=== PATIENT | female | born 1945 | race Caucasian/White ===

== ENCOUNTER 2023-12-23 12:40 | Outpatient (CLI) | payer BC ==
[2023-12-23 17:51] LABS: BASOPHILS % (AUTO) 0.4 %; EOSINOPHILS # (AUTO) 0.2 10^3/uL (0.0-0.7); HGB - HEMOGLOBIN 11.5 g/dL (12.0-16.0); LYMPHOCYTES # (AUTO) 2.2 10^3/uL (1.5-3.5); LYMPHOCYTES % (AUTO) 29.7 %; MEAN CORPUSCULAR HEMOGLOBIN 28.4 pg (27.0-31.0); MEAN CORPUSCULAR HGB CONC 31.1 g/dL (32.0-36.0); MEAN CORPUSCULAR VOLUME 91.4 fL (81.0-99.0); MEAN PLATELET VOLUME 12.3 fL (7.9-10.8); MONOCYTES # (AUTO) 0.6 10^3/uL (0.0-1.0); MONOCYTES % (AUTO) 7.7 %; NEUTROPHILS # (AUTO) 4.5 10^3/uL (1.5-6.6); NEUTROPHILS % (AUTO) 60.1 %; PLT - PLATELET COUNT 276 10^3/uL (130-450); RED BLOOD COUNT 4.05 10^6/uL (4.20-5.40); RED CELL DISTRIBUTION WIDTH 15.1 % (12.0-15.0); WHITE BLOOD COUNT 7.5 x10^3/uL (4.8-10.8)
[2023-12-23 18:11] LABS: ALBUMIN 3.9 g/dL (3.2-5.5); ALBUMIN/GLOBULIN RATIO 1.1 (1.0-2.2); ALKALINE PHOSPHATASE 80 IU/L (42-121); ALT ALANINE AMINOTRANSFERASE 11 IU/L (10-60); AST ASPARTATE AMINOTRANSFERASE 16 IU/L (10-42); BILIRUBIN,TOTAL 0.6 mg/dL (0.2-1.0); BUN - BLOOD UREA NITROGEN 22 mg/dL (6-20); CALCIUM 9.3 mg/dL (8.5-10.3); CARBON DIOXIDE - CO2 26 mmol/L (21-32); CHLORIDE 101 mmol/L (101-111); CHOL/HDL RATIO 3.2 (<4.4); CHOLESTEROL 127 mg/dL; CREATININE 1.2 mg/dL (0.6-1.3); GFR - MDRD 43 (>89); GLUCOSE 109 mg/dL (74-104); HDL CHOLESTEROL 40 mg/dL; LDL CHOLESTEROL,CALCULATED 55 mg/dL; LDL/HDL RATIO 1.4 (<4.4); POTASSIUM 3.7 mmol/L (3.5-4.5); SODIUM 135 mmol/L (135-145); TOTAL PROTEIN 7.3 g/dL (6.4-8.9); TRIGLYCERIDES 159 mg/dL (48-352); VLDL CHOLESTEROL 32 mg/dL
[2023-12-23 18:14] LABS: THYROID STIMULATING HORMONE 3.28 uIU/mL (0.34-5.60)
== END 2023-12-23 12:41 | disposition home or self-care (01) ==
LOC: LAB.N 12:40
PROVIDERS: ATTEND Physician Assistant
DX: I13.0 Hypertensive heart and chronic kidney disease with heart failure and stage 1 through stage 4 chronic kidney disease, or unspecified chronic kidney disease (principal); N18.31 Chronic kidney disease, stage 3a; E03.9 Hypothyroidism, unspecified
CPT/HCPCS: 36415; 80053; 80061; 83721; 84443; 85025

== ENCOUNTER 2024-03-13 14:09 | Outpatient (CLI) | payer BC ==
--- NOTE | 2024-03-13 19:33 | CT Report ---
PROCEDURE: Head WO INDICATIONS: MEMORY IMPAIRMENT TECHNIQUE: Noncontrast 4.5 mm thick angled axial sections acquired from the foramen magnum to the vertex. For r adiation dose reduction, the following was used: automated exposure control, adjustment of mA and/or kV according to patient size. COMPARISON: None. FINDINGS: Image quality: Excellent. CSF spaces: Basal cisterns are patent. No extra-axial fluid collections. Ventricles are normal in size and shape. Brain: No midline shift. No intracranial masses or hemorrhage. Michael-white matter interface is norm al. Symmetric calcification of the basal ganglia can be seen, which is considered to be within edenilson l limits for age. Age-appropriate brain parenchymal volume loss and chronic small vessel ischemic c hange can be seen. Skull and face: Calvarium and visualized facial bones are intact, without suspicious lesions. Sinuses: Visualized sinuses and mastoids are clear. IMPRESSION: Noncontrast head CT within normal limits for age, with generalized brain parenchymal volume loss and chronic small vessel ischemic change seen. To the limits of this noncontrast study, no findings of masses or mass effect can be seen. Reviewed by: Ryder Dutton MD on 03/13/2024 6:32 PM THOMAS Approved by: Ryder Dutton MD on 03/13/2024 6:32 PM [id number] Station ID: [id number]
== END 2024-03-13 14:10 | disposition home or self-care (01) ==
LOC: DI 14:09
PROVIDERS: ATTEND Physician Assistant
DX: R41.3 Other amnesia (principal); Z86.79 Personal history of other diseases of the circulatory system; G31.89 Other specified degenerative diseases of nervous system; I67.82 Cerebral ischemia

== ENCOUNTER 2024-04-03 10:16 | Outpatient (CLI) | payer BC ==
[2024-04-03 12:24] LABS: ESTIMATED AVERAGE GLUCOSE 126 mg/dL (70-100)
== END 2024-04-03 10:17 | disposition home or self-care (01) ==
LOC: LAB.N 10:16
PROVIDERS: ATTEND Physician Assistant
DX: R81 Glycosuria (principal)
CPT/HCPCS: 36415; 83036

== ENCOUNTER 2024-04-03 21:48 | Emergency (ER) | payer BC ==
--- NOTE | 2024-04-03 22:22 | ED Physician Documentation ---
PD HPI FOCAL NEURO - Stated complaint Stated Complaint: DIFFICULTY TALKING - Chief complaint Chief Complaint: Neuro - History obtained from History obtained from: Patient, Family - Additional information Additional information: 78-year-old woman who has A-fib and is on a DOAC. She has a history of TIA as well. There is been some word finding difficulty over the last few months and recent diagnosis of dementia and was put on donepezil. Suddenly tonight about an hour and a half ago she developed significantly more word finding difficulties and difficulties with speech. She denies any weakness, numbness, tingling anywhere. No headache. No vision deficit. No clumsiness. She is walking okay. She is here with her son. PD PAST MEDICAL HISTORY - Past Medical History Past Medical History: Yes Cardiovascular: Congestive heart failure Neuro: CVA, TIA - Past Surgical History Past Surgical History: No - Present Medications Home Medications: Ambulatory Orders Medication Instructions Recorded Confirmed Apixaban [Eliquis] 5 mg PO BID 04/03/24 04/03/24 Bumetanide [Bumex] 1 mg PO DAILY 04/03/24 04/03/24 Candesartan Cilexetil 2 mg PO DAILY 04/03/24 04/03/24 Dapagliflozin Propanediol [Farxiga] 5 mg PO DAILY 04/03/24 04/03/24 Donepezil [Aricept] 5 mg PO DAILY 04/03/24 04/03/24 Levothyroxine [Synthroid] 25 mcg PO QDAC 04/03/24 04/03/24 Metoprolol Succinate 150 mg PO DAILY 04/03/24 04/03/24 Multivit-Min/Iron/Folic/Lutein 1 each PO BID 04/03/24 04/03/24 [Multivitamin Women 50 Plus Tab] Rosuvastatin Calcium 10 mg PO DAILY 04/03/24 04/03/24 - Allergies Allergies/Adverse Reactions: Allergies Allergy/AdvReac Type Severity Reaction Status Date / Time No Known Drug Allergies Allergy Verified 04/03/24 22:02 - Social History Does the pt smoke?: No Smoking Status: Never smoker Does the pt drink ETOH?: No Does the pt have substance abuse?: No PD ED PE NORMAL - Vitals Vital signs reviewed: Yes - General General: Alert and oriented X 3, Other (Kind of stuttering speech and some difficulty understanding her but despite the dementia she is actually a fairly good historian. Remembers what she had for breakfast.) - HEENT HEENT: PERRL, EOMI - Neck Neck: Supple, no meningeal sign, No bony TTP - Cardiac Cardiac: No murmur, Other (Irregularly irregular with mild rapidity.) - Respiratory Respiratory: No respiratory distress, Clear bilaterally - Abdomen Abdomen: Non tender - Neuro Neuro: Alert and oriented X 3, No motor deficit, No sensory deficit Eye Opening: Spontaneous Motor: Obeys Commands Verbal: Oriented GCS Score: 15 - Psych Psych: Normal mood, Normal affect NIHSS - Time Time: 22:15 - Level of Consciousness Level of consciousness: (0) Alert, Keenly responsive LOC Questions: (0) Answers both Q's correct LOC Commands: (0) Performs both correctly - Gaze Best Gaze: (0) Normal - Visual Visual: (0) No loss - Facial Palsy Facial Palsy: (0) Normal, symmetrical movement - Motor Arms (both separate) Motor Arm (right): (0) No drift Motor Arm (left): (0) No drift - Motor Legs (both separate) Motor Leg (right): (0) No drift Motor Leg (left): (0) No drift - Limb Ataxia Limb Ataxia: (0) Absent - Sensory Sensory: (0) Normal - Best Language Best Language: (1) [id number] - Dysarthria Dysarthria: (0) Normal - Extinction and Inattention (formally neg Extinction and inattention: (0) No abnormality - Total Score/Results Total Score/Result: 1 Results - Vitals Vitals: Vital Signs - 24 hr 04/03/24 04/03/24 04/03/24 21:51 22:32 23:02 Temperature 36.6 C Heart Rate 124 H 110 H 113 H Respiratory 20 22 30 H Rate Blood Pressure 140/96 H 140/111 H 134/97 H O2 Saturation 99 97 96 04/03/24 04/04/24 04/04/24 23:30 00:30 01:15 Temperature Heart Rate 106 H 111 H 90 Respiratory 21 22 20 Rate Blood Pressure 155/108 H 131/96 H O2 Saturation 97 96 99 Oxygen O2 Source Room air - EKG (time done) 2211 EKG releavant findings:: EKG personally interpreted by author of this note. Relevant findings are: Rate: Rate (enter#) (121) Rhythm: Atrial fibrillation [place]: Normal QRS: Normal Ischemia: Normal ST segments - Labs Labs: Laboratory Tests 04/03/24 04/03/24 04/03/24 22:40 22:40 22:40 WBC 8.4 RBC 4.03 L Hgb 11.5 L Hct 36.2 L MCV 89.8 MCH 28.5 MCHC 31.8 L RDW 15.1 H Plt Count 231 MPV 10.5 Neut # (Auto) 5.7 Lymph # (Auto) 2.0 Alfalfa # (Auto) 0.6 Eos # (Auto) 0.1 Baso # (Auto) 0.0 Absolute Nucleated RBC 0.00 Nucleated RBC % 0.0 PT 21.3 H INR 2.0 H Sodium 138 Potassium 3.4 L Chloride 103 Carbon Dioxide 25 Anion Gap 10.0 BUN 15 Creatinine 1.0 Estimated GFR (MDRD) 53 L Glucose 144 H Calcium 9.3 Total Bilirubin 0.7 AST 18 ALT 10 Alkaline Phosphatase 94 Total Protein 7.0 Albumin 3.8 Globulin 3.2 Albumin/Globulin Ratio 1.2 PD Medical Decision Making - ED course ED course: She has A-fib so of course is at increased risk for stroke. She has some new mild aphasia in the setting of some more chronic aphasia. It does sound like something acute happens tonight, that said she is not a candidate for thrombolytics given the anticoagulation and she has been compliant with that. Care to Dr Jordan pending CT/CTA. Departure - Departure Disposition: 01 Home, Self Care Clinical Impression: TIA (transient ischemic attack) Condition: Good Instructions: ED Transient Ischemic Attack Comments: While there was no evidence of stroke on the CT scans, and your neck CT scan did not show any narrowing nor blockage of either of your carotid arteries in your neck, your symptoms are still strongly suggestive of a stroke. Realize that most strokes are not seen on these studies; MRI is the most accurate test for diagnosing stroke. Fortunately, on reevaluation, your difficulty with speech has nearly resolved. 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 Contact your PCP when the office is next open to arrange for next available appointment for reevaluation. Discharge Date/Time: 04/04/24 01:31
[2024-04-03 22:57] LABS: BASOPHILS % (AUTO) 0.4 %; EOSINOPHILS # (AUTO) 0.1 10^3/uL (0.0-0.7); EOSINOPHILS % (AUTO) 1.5 %; HCT - HEMATOCRIT 36.2 % (37.0-47.0); HGB - HEMOGLOBIN 11.5 g/dL (12.0-16.0); LYMPHOCYTES % (AUTO) 23.3 %; MEAN CORPUSCULAR HEMOGLOBIN 28.5 pg (27.0-31.0); MEAN CORPUSCULAR HGB CONC 31.8 g/dL (32.0-36.0); MEAN CORPUSCULAR VOLUME 89.8 fL (81.0-99.0); MEAN PLATELET VOLUME 10.5 fL (7.9-10.8); MONOCYTES # (AUTO) 0.6 10^3/uL (0.0-1.0); MONOCYTES % (AUTO) 7.1 %; NEUTROPHILS # (AUTO) 5.7 10^3/uL (1.5-6.6); NEUTROPHILS % (AUTO) 67.5 %; PLT - PLATELET COUNT 231 10^3/uL (130-450); RED BLOOD COUNT 4.03 10^6/uL (4.20-5.40); RED CELL DISTRIBUTION WIDTH 15.1 % (12.0-15.0); WHITE BLOOD COUNT 8.4 x10^3/uL (4.8-10.8)
[2024-04-03 23:01] LABS: PT - PROTHROMBIN TIME 21.3 secs (9.9-12.6)
[2024-04-03 23:15] LABS: ALBUMIN 3.8 g/dL (3.2-5.5); ALBUMIN/GLOBULIN RATIO 1.2 (1.0-2.2); BILIRUBIN,TOTAL 0.7 mg/dL (0.2-1.0); CALCIUM 9.3 mg/dL (8.5-10.3); POTASSIUM 3.4 mmol/L (3.5-4.5)
[2024-04-03] MEDS ORDERED: iohexoL-300 100 ML VIAL ONE (23:43)
[2024-04-04] MEDS: iohexoL-300 100 ML VIAL IVP ONE (00:19)
--- NOTE | 2024-04-04 00:25 | CT Report ---
PROCEDURE: Head WO INDICATIONS: cva sx TECHNIQUE: Noncontrast 4.5 mm thick angled axial sections acquired from the foramen magnum to the vertex. For r adiation dose reduction, the following was used: automated exposure control, adjustment of mA and/or kV according to patient size. COMPARISON: 03/13/2024 FINDINGS: Image quality: Excellent. CSF spaces: Basal cisterns are patent. No extra-axial fluid collections. The ventricles are symmet hanh in size and shape. Brain: No intracranial bleeds or masses. There is cerebral volume loss for age, with resultant vent ricular and sulcal prominence. There are periventricular and deep white matter chronic small vessel ischemic changes. There is intracranial internal carotid artery atherosclerosis. Skull and face: Calvarium and visualized facial bones appear intact, without suspicious lesions. Sinuses: Visualized sinuses and mastoids are clear. IMPRESSION: No acute intracranial pathology. No significant changes from previous study. Reviewed by: Jimy Coffman MD on 04/04/2024 12:24 AM PDT Approved by: Jimy Coffamn MD on 04/04/2024 12:24 AM PDT Station ID: [id number]
--- NOTE | 2024-04-04 00:27 | CT Report ---
PROCEDURE: Angio Head/Neck INDICATIONS: cva sx TECHNIQUE: After the administration of intravenous contrast, 1 mm thick sections acquired from the aortic arch t hrough the [employer] [place] [employer] [place] [facility] [place]. 3-dimensional vjfydyc-ddbkuvksm-mukfgpevpg (MIP) and/or volume renderin g reformats were acquired of the central intracranial vasculature and neck separately. For radiation dose reduction, the following was used: automated exposure control, adjustment of mA and/or kV acco rding to patient size. CONTRAST: 100 ML OMNI 300 COMPARISON: None. FINDINGS: Image quality: Diagnostic. HEAD CT: CSF Spaces: Basal cisterns are patent. No extra-axial fluid collections. Ventricles are normal in size and shape. Brain: No significant abnormality is seen for scanning technique. Skull and face: Calvarium and visualized facial bones appear intact, without suspicious lesions. Sinuses: Visualized sinuses and mastoids are clear. HEAD CT ANGIOGRAPHY: Anterior circulation: Intracranial internal carotid arteries are normal in size and flow. The flow within the paired anterior cerebral arteries is normal and symmetric. The flow within the middle cer ebral arteries is normal and symmetric. The anterior communicating artery is seen. No aneurysms are seen. Posterior circulation: Visualized portions of the vertebral arteries demonstrate normal caliber, and join to form a normal appearing basilar artery. Flow within the posterior cerebral arteries is norm al and symmetric. No aneurysms are seen. NECK CT ANGIOGRAPHY: Carotid system: The great vessels demonstrate a conventional anatomy as they arise from the aortic a rch. The origins of the common carotid arteries appear patent. The common carotid arteries demonstr ate normal caliber and courses. The bifurcation regions are both widely patent. The internal caroti d arteries demonstrate normal calibers and courses. Posterior circulation: The origins of the vertebral arteries both appear widely patent. The more miles perior extracranial portions of both vertebral arteries also demonstrate normal courses and calibers. They join to form a normal appearing basilar artery. Soft tissues: Visualized neck soft tissues demonstrate no suspicious abnormalities. Bones: No suspicious bony lesions. Visualized cervical spine appears normally aligned. IMPRESSION: No significant intracranial arterial abnormality is seen. No significant abnormality is seen within the arteries of the neck. The estimate of stenosis included in the report of the imaging study was calculated using the NASCET method Reviewed by: Jimy Coffman MD on 04/04/2024 12:26 AM PDT Approved by: Jimy Coffman MD on 04/04/2024 12:26 AM PDT Station ID: [id number]
[2024-04-04 01:30] VITALS: BP 131/96; O2SAT 99
--- NOTE | 2024-04-04 03:45 | ED Physician Documentation ---
ED Addendum - Addendum Addendum: 04/04/24 03:45 I received signout/turnover of care of this patient from Dr. Pimentel; please see his note for complete H&P. In brief, patient presents for acute expressive aphasia, manifest as severe difficulty word finding; patient's son (who is in the ED at patient's bedside at the time of my evaluation of this patient) says that she was even speaking complete gibberish at times tonight. Both the patient and her son indicate that, over the past several months, she has had some degree of difficulty with word-finding, but that tonight was a distinct, sudden, and severe deviation from her baseline. At the time of signout, results of CTA head and neck were pending. The studies have no acute/concerning findings, including no LVO, no carotid stenosis. On my exam, the patient is AAOx3. Nearly all of her answers are vásquez and appropriate/accurate. During her conversation, only on 2 brief occasions did she have stammering speech. At no point was she speaking gibberish/word salad. Both the patient and her son tell me that she seems to be back to her baseline regarding her intermittent difficulty with word finding. I discussed with her the option of admission for overnight observation and MRI later in the day. However, given that her symptoms have, per patient and her s on, essentially resolved, admission for observation/further testing is of questionable benefit at this point. After considerable discussion of options (specifically admission is discharge), the patient and her son both indicate they are quite comfortable being discharged home. Return precautions were carefully reviewed. I recommended that she contact her PCP when the office is next open to arrange for the next available appointment for reevaluation. Of course, and says that she can return at any time that she feels her symptoms recur, or if she develops new/concerning signs/symptoms (such as, but not necessarily limited to, headache, visual changes, acute weakness, numbness, confusion).
== END 2024-04-04 01:31 | disposition home or self-care (01) ==
LOC: ED 21:48
DX: G45.9 Transient cerebral ischemic attack, unspecified (principal); F03.90 Unspecified dementia, unspecified severity, without behavioral disturbance, psychotic disturbance, mood disturbance, and anxiety; I48.91 Unspecified atrial fibrillation; Z79.01 Long term (current) use of anticoagulants; R81 Glycosuria
CPT/HCPCS: 36415; 70450; 70496; 70498; 80053; 83036; 85025; 85610; 93005; 99284; 99285; Q9967

== ENCOUNTER 2024-06-17 12:37 | Outpatient (CLI) | payer BC ==
[2024-06-17] MEDS ORDERED: GADOTERATE MEGLUMINE 10 MMOL/20 ML VIAL ONE (13:46)
[2024-06-17] MEDS: GADOTERATE MEGLUMINE 10 MMOL/20 ML VIAL IVP ONE (16:07)
--- NOTE | 2024-06-17 21:56 | MRI Report ---
PROCEDURE: Brain WO INDICATIONS: TIA TECHNIQUE: Noncontrast axial T1 spin echo, axial T2 fast spin echo, sagittal and axial FLAIR, coronal T2 fast sp in echo, axial gradient echo, axial diffusion and ADC through the brain. COMPARISON: Correlation is made with prior CT examinations, 04/03/2024, 03/13/2024 FINDINGS: Image quality: Diagnostic, with note made of motion artifact. CSF Spaces: Basal cisterns are patent. No extra-axial fluid collections. Ventricles are normal in size and shape. Brain: No intracranial masses or hemorrhage. Mihcael/white matter interface is normal. Brainstem appe ars normal. Diffusion-weighted images demonstrate no acute ischemic insult. No chronic ischemic ins ults. Normal intravascular flow voids are present. Age-appropriate brain parenchymal volume loss an d chronic small vessel ischemic change can be seen. Skull and face: Calvarium has normal marrow signal. Orbits appear normal. Sinuses: Sinuses and mastoids are clear. IMPRESSION: No findings of acute or subacute infarction are seen. No prior territorial infarction can be seen. Age-appropriate brain parenchymal volume loss and chronic small vessel ischemic change can be seen. Reviewed by: Ryder Dutton MD on 06/17/2024 8:55 PM THOMAS Approved by: Ryder Dutton MD on 06/17/2024 8:55 PM THOMAS Station ID: [id number]
== END 2024-06-17 12:38 | disposition home or self-care (01) ==
LOC: LAB 12:37
PROVIDERS: ATTEND Physician Assistant
DX: G45.9 Transient cerebral ischemic attack, unspecified (principal); R47.01 Aphasia; G31.89 Other specified degenerative diseases of nervous system; I67.82 Cerebral ischemia
CPT/HCPCS: 36415; 70551; 82565; A9575